=== PATIENT | male | born 1980 | race Caucasian/White ===

== ENCOUNTER 2017-12-18 10:05 | Emergency (ER) | payer BC, OTHER ==
[2017-12-18 10:12] VITALS: TEMP 97.2
--- NOTE | 2017-12-18 10:27 | ED.PDOC ---
History of Present Illness - General Chief Complaint: Syncope/Near Syncope Stated Complaint: Syncope, visual changes, palpitations Time Seen by Provider: 12/18/17 10:26 Source: patient Exam Limitations: no limitations - History of Present Illness Initial Comments: Alexis Gonzalez 37 y/o male stated that he had been having sharp neck pains for the last 3 weeks working out in the gym then went to see chiropractor today and underwent chiropractic neck manipulation today at about 0930H then afterwards felt dizzy with blurry vision while driving home.No weakness but felt nauseated; no dysarthia.Denies chronic medical problems. Timing/Duration: 1-3 hours Severity: moderate Improving Factors: nothing Worsening Factors: nothing Associated Symptoms: other - see hpi Allergies/Adverse Reactions: Allergies NO KNOWN ALLERGY Allergy (Verified 12/18/17 10:14) Home Medications: Ambulatory Orders NK [NK] 12/18/17 Review of Systems - Review of Systems Constitutional: States: no symptoms reported EENTM: States: no symptoms reported Respiratory: States: no symptoms reported Cardiology: States: no symptoms reported Gastrointestinal/Abdominal: States: no symptoms reported Genitourinary: States: no symptoms reported Musculoskeletal: States: no symptoms reported Skin: States: no symptoms reported Neurological: States: see HPI, other - dizziness Past Medical History (General) - Patient Medical History Hx Stroke: No Hx Congestive Heart Failure: No Hx Diabetes: No Surgical History: no surgical history - Vaccination History Hx Influenza Vaccination: No Hx Pneumococcal Vaccination: No - Social History Hx Tobacco Use: No Hx Alcohol Use: No Hx Physical Abuse: No Hx Emotional Abuse: No Family Medical History - Family History Father Family History: No Known Living Status: Still Living Hx Family Stroke: No Hx Cardiac Disease: No Physical Exam - Physical Exam General Appearance: Alert, Comfortable, No apparent distress, Well Developed, Well Groomed, Well Nourished Eye Exam: bilateral normal Ears, Nose, Throat: hearing grossly normal, normal ENT inspection, normal pharynx Neck: non-tender, full range of motion, supple, normal inspection Respiratory: chest non-tender, lungs clear, normal breath sounds, no respiratory distress Cardiovascular/Chest: normal peripheral pulses, regular rate, rhythm, no murmur Peripheral Pulses: radial,right: 2+, radial,left: 2+ Gastrointestinal/Abdominal: normal bowel sounds, non tender, soft, no organomegaly Extremity: non-tender, normal inspection, no pedal edema, no calf tenderness Neurologic: no motor/sensory deficits, alert, oriented x 3, other - speech fluent;negative romberg;no nystagmus Skin Exam: normal color, warm/dry Lymphatic: no adenopathy Progress - Progress Progress: 12/18/17 10:43 Vital Signs - 8 hr 12/18/17 10:10 Temperature 97.2 F L Pulse Rate [ 69 Left Radial] Respiratory 20 Rate Blood Pressure 141/89 [Left Arm] O2 Sat by Pulse 100 Oximetry 12/18/17 11:51 Discuss lab result and carotid doppler to patient which were normal and incidental findings of basal ganglia cyst on head ct that needs to have further evaluatuion by neurologist referred by primary MD. - Results/Orders Results/Orders: 12/18/17 10:44 IV Care:Saline Lock per Protoc QSHIFT 12/18/17 11:00 EKG STAT Laboratory Results - last 24 hr 12/18/17 12/18/17 10:58 10:58 WBC 4.7 L RBC 5.20 Hgb 15.9 Hct 46.6 MCV 89.7 MCH 30.5 MCHC 34.0 RDW 13.1 Plt Count 151 MPV 8.1 Absolute Neuts (auto) 2.80 Absolute Lymphs (auto) 1.50 Absolute Monos (auto) 0.30 Absolute Eos (auto) 0.00 Absolute Basos (auto) 0.00 Neutrophils % 60.4 Lymphocytes % 31.8 Monocytes % 6.5 Eosinophils % 0.9 L Basophils % 0.4 Sodium 141 Potassium 3.7 Chloride 104 Carbon Dioxide 29 Anion Gap 11.7 L BUN 17 Creatinine 1.09 BUN/Creatinine Ratio 15.6 Random Glucose 134 H Serum Osmolality 284.8 Calcium 9.3 Total Bilirubin 0.7 AST 24 ALT 39 Alkaline Phosphatase 56 Creatine Kinase 60 CK-MB (CK-2) 0.8 CK-MB (CK-2) % Not Reportable Troponin I < 0.02 Serum Total Protein 7.6 Albumin 4.6 Globulin 3.0 Albumin/Globulin Ratio 1.5 - EKG/XRAY/CT EKG: Sinus, no ST T wave changes Comments: NSR;HR-78 CT Ordered: Yes - head basal ganglia cyst;no infarc or hemorrhage Departure - Departure Clinical Impression: Dizziness, Blurred vision, Neck pain, Brain cyst Time of Disposition: 11:48 Disposition: Discharge to Home or Self Care Condition: Fair Departure Forms: ED Discharge - Pt. Copy, Patient Portal Self Enrollment Home Medications: Ambulatory Orders NK [NK] 12/18/17 Additional Instructions: May take Aleve(over the counter) 1-2 tablets am/pm for pain;Follow up with primary MD;Return to ER as needed;Need to discontinue chiropractic manipulation and no heavy lifting until better.
[2017-12-18] MEDS ORDERED: DEXAMETHASONE INJ 4 MG/ML VIAL IV ONE (10:44)
[2017-12-18] MEDS ORDERED: PROMETHAZINE HCL INJ 25 MG/ML VIAL IM ONE (10:44)
--- NOTE | 2017-12-18 11:29 | CT ---
EXAM DESCRIPTION: Head: Computed Tomography. CLINICAL HISTORY: dizziness. Recurrent after cervical spine manipulation from chiropractor. COMPARISON: Ultrasound carotid duplex examination on the same visit. TECHNIQUE: Non-helical axial scans through the skull and brain, at 5.0 mm intervals, non-contrast. Coronal and sagittal 2.0 mm reconstructions. Axial 2.5 mm reconstructions. Total Exam DLP: 967.47 mGy-cm. This exam was performed according to our departmental dose-optimization program which includes automated exposure control, adjustment of the mA and/or kV according to patient size and/or use of iterative reconstruction technique; to reduce radiation dose to as low as reasonably achievable (ALARA). FINDINGS: No hemorrhage, no mass-effect, and no midline shift. Normal tijerina-white matter differentiation. Triangular-shaped low-density in the superior left basal ganglia. No abnormal radiodense material in the brain parenchyma. Vascular calcifications not present; physiologic calcifications in the pineal gland and choroid plexus. No effacement or displacement of the ventricles, CSF spaces, or subdural spaces. No extra axial fluid collection or hemorrhage. No gross abnormalities of the bony calvarium. Included paranasal sinuses and mastoid air cells are well - aerated. Minimal chronic sinusitis in the ethmoid air cells. IMPRESSION: 1. No hemorrhage, no mass effect, no midline shift. 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 No extra-axial hemorrhage. 2. CT scans are insensitive for detecting small CVAs in the first 24 hours after onset. Evaluation of the brain stem is also limited. If symptoms persist, consider NON-EMERGENT MRI scan of the brain with diffusion imaging. Electronically signed by: Matthew Payne MD 12/18/2017 11:27 AM CDT
--- NOTE | 2017-12-18 11:34 | US ---
EXAM DESCRIPTION: Carotid Duplex: ULTRASOUND. CLINICAL HISTORY: dizzy/blurry vision after chiropractic cervical spine manipulation. COMPARISON: CT scan of the head without IV contrast today. TECHNIQUE: Transcutaneous scanning utilizing tijerina-scale and Doppler modes to evaluate the bilateral carotid systems and vertebral arteries. Percentage of diameter of stenosis or no stenosis recorded will be based upon NASCET criteria. FINDINGS: Peak systolic/end diastolic (CM-Sec) CCA Right 87/13 Left 116/16. ICA Right proximal 50/17, distal 54/16. Left proximal 41/13, mid 47/17. Vertebral Right 26/8 Left 29/12. ECA (PS Only) Right 82 left 62. ICA/CCA peak systolic ratio: Right 0.6 Left 0.4 ICA/CCA end diastolic ratio: Right 1.2 Left 1.1 Vertebral arteries: antegrade flow. Comments: Minimal spectral broadening in the proximal right ICA. No significant calcification bilaterally. IMPRESSION: 1. Doppler evaluation of the bilateral carotid systems and vertebral arteries shows no hemodynamically significant stenoses. 2. No significant amount of plaque seen in the carotid arteries bilaterally. Bilateral vertebral arteries showed antegrade-cephalad flow. Electronically signed by: Matthew Payne MD 12/18/2017 11:33 AM CDT
[2017-12-18 12:11] VITALS: BP 134/75; O2SAT 96
== END 2017-12-18 12:11 | disposition home or self-care (01) ==
LOC: ER 10:05
DX: R42 Dizziness and giddiness (principal); H53.8 Other visual disturbances; G93.0 Cerebral cysts; M54.2 Cervicalgia; Z98.890 Other specified postprocedural states
CPT/HCPCS: 36415; 70450; 80053; 82550; 82553; 84484; 85025; 93005; 93880; J1100